=== PATIENT | female | born 1960 | race Two or more races ===

== ENCOUNTER 2020-02-28 09:56 | Outpatient (CLI) | payer OTHER | END 2020-02-28 10:10 | disposition home or self-care (01) | LOC: RX STUDY 09:56 | PROVIDERS: ATTEND Colon & Rectal Surgery | DX: R19.5 Other fecal abnormalities (principal); K57.20 Diverticulitis of large intestine with perforation and abscess without bleeding ==

== ENCOUNTER 2020-04-16 12:00 | Inpatient (IN) | payer OTHER ==
[~2020-04-16] VITALS: Ht 152.4 cm; Wt 47.6 kg
[2020-04-16] MEDS ORDERED: TREXALL5 MG PO (15:49)
[2020-04-16] MEDS ORDERED: FOLIC ACID0.8 M1 PO (15:49)
[2020-04-16] MEDS ORDERED: CRESTOR5 MG PO (15:50)
[2020-04-16] MEDS ORDERED: LEVOTHYROXINE25 MCG PO (15:50)
== END 2020-04-26 19:45 | disposition home or self-care (01) | DRG 331 ==
LOC: O/R 04-24 07:25 → SURH 04-24 07:25
PROVIDERS: ADMIT Colon & Rectal Surgery; ATTEND Colon & Rectal Surgery
PROC: 0DSN4ZZ Reposition Sigmoid Colon, Percutaneous Endoscopic Approach (ICD-10-PCS; 2020-04-24)
PROC: 0DJD8ZZ Inspection of Lower Intestinal Tract, Via Natural or Artificial Opening Endoscopic (ICD-10-PCS; 2020-04-24)
PROC: 0DBN4ZZ Excision of Sigmoid Colon, Percutaneous Endoscopic Approach (ICD-10-PCS; principal; 2020-04-24 19:00)
DX: K57.32 Diverticulitis of large intestine without perforation or abscess without bleeding (principal); Z43.3 Encounter for attention to colostomy; K43.2 Incisional hernia without obstruction or gangrene; K66.0 Peritoneal adhesions (postprocedural) (postinfection)

== ENCOUNTER 2020-10-14 15:01 | Emergency (ER) | payer OTHER ==
[~2020-10-14] VITALS: Ht 152.4 cm; Wt 50.8 kg
[~2020-10-14 15:01] MED LIST: CRESTOR5 MG PO; FOLIC ACID0.8 M1 PO; LEVOTHYROXINE25 MCG PO; TREXALL5 MG PO
[2020-10-14] MEDS ORDERED: MAXIMUM D3325 MCG PO (15:26)
[2020-10-14] MEDS ORDERED: METHOTREXATE2.5 MG PO (15:26)
[2020-10-14] MEDS ORDERED: DICLOFENAC SODI75 MG PO (16:52)
[2020-10-14] MEDS ORDERED: VOLTAREN100 GM TOP (16:52)
== END 2020-10-14 17:10 | disposition home or self-care (01) ==
LOC: ER 15:01
DX: M06.011 Rheumatoid arthritis without rheumatoid factor, right shoulder (principal); M25.511 Pain in right shoulder